=== PATIENT | female | born 1970 | race Caucasian/White ===

== ENCOUNTER 2020-02-16 10:39 | Emergency (ER) | payer OTHER, SELFPAY ==
[2020-02-16 10:53] VITALS: BP 194/87; PULSE 65; RESP 16; TEMP 36.9; O2SAT 98; BMI 31.3
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
--- NOTE | 2020-02-16 11:04 | XR_ITS ---
EXAMINATION: XR CHEST CLINICAL INFORMATION: Weakness COMPARISON: None TECHNIQUE: Frontal view of the chest was obtained. FINDINGS: The cardiac and mediastinal contours are normal. The lungs are clear. There is no pleural effusion or pneumothorax. There are mild degenerative changes of the spine. XR/XR chest 1V IMPRESSION: Unremarkable examination.
--- NOTE | 2020-02-16 11:04 | ECG_ITS ---
Test Reason : HYPERTENSION Blood Pressure : / mmHG Vent. Rate : 070 BPM Atrial Rate : 070 BPM P-R Int : 138 ms QRS Dur : 100 ms QT Int : 402 ms P-R-T Axes : 053 -24 -26 degrees QTc Int : 434 ms Normal sinus rhythm Voltage criteria for left ventricular hypertrophy Cannot rule out Septal infarct , age undetermined Abnormal ECG No previous ECGs available Referred By: Yola Saab Electronically Signed By:Nathan Quintero
[2020-02-16] MEDS: 0.9 % Sodium Chloride 1,000 ML 999 ML IVCONT (11:29)
[2020-02-16] MEDS: ondansetron HCL 4 MG/2 ML VIAL IVPUSH (11:29)
[2020-02-16 11:32] LABS: MANUAL DIFF FLAG NO
[2020-02-16 11:34] LABS: Basophils Percent Auto 0.3 % (0-2); Eosinophils Absolute Auto 0.3 X10*3/uL (0.0-0.4); Eosinophils Percent Auto 3.7 % (0-4); Hematocrit 42.4 % (37-47); Hemoglobin 14.6 g/dl (12.0-16.0); Imm Gran Abs Auto 0.03 X10*3/uL (0.00-0.03); Imm Gran Pct Auto 0.3 % (0.0-0.4); Lymphocytes Absolute Auto 2.3 X10*3/uL (1.2-4.9); Lymphocytes Percent Auto 26.4 % (20-40); Mean Corpuscular HGB Conc 34.4 g/dl (31.0-35.0); Mean Corpuscular Volume 95.9 fL (80-98); Mean Platelet Volume 10.1 fL (9.4-12.3); Monocytes Absolute Auto 0.5 X10*3/uL (0.1-1.2); Monocytes Percent Auto 5.7 % (2-11); Neutrophils Absolute Auto 5.5 X10*3/uL (2.0-8.3); Neutrophils Percent Auto 63.6 % (45-73); Platelet Count 239 X10*3/uL (160-400); Red Blood Count 4.42 X10*6/uL (4.20-5.50); Red Cell Distribution Width 11.5 % (11.0-16.0); White Blood Count 8.6 X10*3/uL (4.8-10.8)
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
[2020-02-16 11:50] LABS: Base Excess VBG 2.9 mmol/L; HCO3 VBG 29 mmol/L; Oxygen Saturation VBG 75.2 %; PCO2 VBG 48 mmhg; PO2 VBG 40 mmhg
[2020-02-16 12:00] VITALS: BP 177/88; PULSE 63; RESP 20; O2SAT 100
[2020-02-16 12:03] LABS: Lipase 12 U/L (8-78)
[2020-02-16 12:09] LABS: Alanine Aminotransferase 16 U/L (0-31); Albumin Level 4.4 g/dL (3.5-5.0); Alkaline Phosphatase 91 U/L (39-117); Anion Gap 19 (12-20); Aspartate Amino Transferase 17 U/L (5-31); Bilirubin Direct 0.6 mg/dL (0.0-0.5); Blood Urea Nitrogen 11 mg/dL (9-16); Calcium 9.7 mg/dL (8.4-10.2); Carbon Dioxide 24 mmol/L (22-29); Chloride 99 mmol/L (96-108); Estimated Glomerular Filt Rate > 60; Glucose Random 174 mg/dL (60-115); Magnesium 1.8 mg/dL (1.6-2.6); Potassium 3.9 mmol/l (3.3-5.1); Sodium 138 mmol/L (135-145); Total Protein 8.1 g/dL (6.5-8.0)
[2020-02-16 12:19] LABS: Influenza A PCR NEGATIVE (Negative); Influenza B PCR NEGATIVE (Negative); Resp Syncy Virus RNA Qual PCR NEGATIVE (Negative); SARS COV2 PCR INHOUSE NEGATIVE (Negative)
[2020-02-16 12:20] LABS: Glucose Urine UA NEG (NEG); Leukocyte Esterase Urine NEG (NEG); Nitrite Urine NEG (NEG); Specific Gravity - Urine >= 1.030 (1.005-1.025); Urine Blood NEG (NEG); Urine Ketones 5 MG/DL (NEG); Urine Protein NEG (NEG-TRACE)
[2020-02-16 12:22] VITALS: BP 177/88; PULSE 67
[2020-02-16] MEDS: lisinopriL 5 MG TABLET PO (12:22)
[2020-02-16 12:23] LABS: Appearance Urine CLEAR; Color Urine YELLOW
[2020-02-16] MEDS: Acetaminophen 325 MG TABLET 650 MG PO (12:23)
[2020-02-16 12:24] LABS: UPreg QC Valid YES; Urine Pregnancy NEGATIVE (NEGATIVE)
[2020-02-16 13:16] VITALS: BP 182/65; PULSE 60; RESP 16; TEMP 37.1; O2SAT 98
[2020-02-16 14:00] VITALS: BP 165/66; PULSE 72; RESP 20; TEMP 37.2; O2SAT 99
[2020-02-16 14:26] LABS: Troponin-I High Sensitivity < 3.5 ng/L (<3.5-17.0)
== END 2020-02-16 15:24 | disposition home or self-care (01) ==
PROVIDERS: Emergency Provider Emergency Medicine
DX: I10 Essential (primary) hypertension (principal); R11.2 Nausea with vomiting, unspecified; Z20.828 Contact with and (suspected) exposure to other viral communicable diseases; Z91.14 Patient's other noncompliance with medication regimen; Z79.899 Other long term (current) drug therapy
CPT/HCPCS: 0241U; 36415; 71045; 80048; 80076; 81003; 81025; 82803; 83690; 83735; 84484; 85025; 93005; 96361; 96374; 99284; J2405